=== PATIENT | female | born 1965 | race Caucasian/White ===

== ENCOUNTER → 2021-05-15 | Outpatient (CLI) | payer BC | END | disposition home or self-care (01) | LOC: COVID19 17:37 | PROVIDERS: ATTEND Internal Medicine | DX: U07.1 COVID-19 (principal) ==

== ENCOUNTER 2021-12-14 17:28 | Emergency (ER) | payer BC ==
[~2021-12-14] VITALS: Ht 157.4 cm; Wt 77.1 kg
== END 2021-12-14 18:36 | disposition home or self-care (01) ==
LOC: ED 17:28
DX: S05.01XA Injury of conjunctiva and corneal abrasion without foreign body, right eye, initial encounter (principal); Z88.0 Allergy status to penicillin; J45.909 Unspecified asthma, uncomplicated; W22.8XXA Striking against or struck by other objects, initial encounter; Y93.89 Activity, other specified; Y92.89 Other specified places as the place of occurrence of the external cause; Y99.8 Other external cause status